=== PATIENT | female | born 1995 | race Caucasian/White ===

== ENCOUNTER 2016-07-11 11:22 | Emergency (ER) | payer OTHER ==
[2016-07-11 12:53] VITALS: BP 123/68
== END 2016-07-11 13:15 | disposition left against medical advice (07) ==
LOC: UCCORT 11:22
DX: R09.89 Other specified symptoms and signs involving the circulatory and respiratory systems (principal); Z53.21 Procedure and treatment not carried out due to patient leaving prior to being seen by health care provider

== ENCOUNTER 2016-07-11 19:04 | Emergency (ER) | payer OTHER ==
[2016-07-11 20:00] VITALS: BP 111/70
--- NOTE | 2016-07-11 21:47 | UC ---
Throat Pain/Nasal [place] HPI - HPI Summary HPI Summary: 21 female presents today complaining of sinus pressure and nasal congestion that started this morning. Patient states she has not tried taking any OTC medication for these symptoms. She had one sinus infection before last year. She denies any sore throat, cough, headache, eye pressure and nausea/vomiting. Patient states sometimes her ears feel full. She also states her neck is sore. Nothing really seems to make it better or worse. Has not been around anybody that is sick. - History of Current Complaint Chief Complaint: UCGeneralIllness Stated Complaint: SINUSES Time Seen by Provider: 07/11/16 21:36 Hx Obtained From: Patient Hx Last Menstrual Period: 06/13/16 ?: No Onset/Duration: Sudden Onset Severity: Mild Pain Intensity: 5 Pain Scale Used: 0-10 Numeric Cough: None Associated Signs & Symptoms: Positive: Sinus Discomfort, Nasal Discharge - Allergies/Home Medications Allergies/Adverse Reactions: Allergies Allergy/AdvReac Type Severity Reaction Status Date / Time Penicillins Allergy Hives Verified 07/11/16 19:59 PMH/Surg Hx/FS Hx/Imm Hx Previously Healthy: Yes - Surgical History Surgical History: None - Family History Known Family History: Positive: None - Social History Alcohol Use: Occasionally Substance Use Type: None Smoking Status (MU): Never Smoked Tobacco - Immunization History Most Recent Influenza Vaccination: 2016 Review of Systems Constitutional: Negative Skin: Negative Eyes: Negative ENT: Nasal Discharge, Other - sinus pressure Respiratory: Negative Cardiovascular: Negative Gastrointestinal: Negative Genitourinary: Negative Motor: Negative Neurovascular: Negative Musculoskeletal: Negative Neurological: Negative Psychological: Negative All Other Systems Reviewed And Are Negative: Yes Physical Exam Triage Information Reviewed: Yes Appearance: No Pain Distress, Well-Nourished, Ill-Appearing - appears congested and tired Vital Signs: Initial Vital Signs Temp 99.1 F 07/11/16 19:53 Pulse 92 07/11/16 19:53 Resp 16 07/11/16 19:53 BP 111/70 07/11/16 19:53 Pulse Ox 100 07/11/16 19:53 Vital Signs Reviewed: Yes Eyes: Positive: Conjunctiva Clear ENT: Positive: Hearing grossly normal, Pharynx normal, Nasal congestion, Nasal drainage, TMs normal, Other: - very mild tenderness upon palpation of maxillary sinuses. Neck: Positive: Supple, No Lymphadenopathy, Tenderness @ - when palpating lateral muscles Respiratory: Positive: Chest non-tender, Lungs clear, Normal breath sounds, No respiratory distress Cardiovascular: Positive: RRR, No Murmur, Pulses Normal Abdominal Exam: Normal Musculoskeletal Exam: Normal Neurological Exam: Normal Psychological Exam: Normal Skin Exam: Normal Throat Pain/Nasal Course/Dx - Course Course Of Treatment: due to patient symptoms beginning this morning, antibiotics were not needed at this time. otc measures were suggested. flonase was prescribed. - Differential Dx/Diagnosis Differential Diagnosis/HQI/PQRI: Influenza, Laryngitis, Otitis Media, Pharyngitis, Sinusitis, URI Provider Diagnoses: rhinosinusitis Discharge - Discharge Plan Condition: Stable Disposition: HOME Prescriptions: Fluticasone NASAL SPRAY 50MCG* [Flonase NASAL SPRAY 50MCG*] 2 spray BOTH NARES DAILY #1 btl Patient Education Materials: Rhinosinusitis (ED) Referrals: Non Staff,Doctor [Primary Care Provider] - Additional Instructions: Use OTC medication such as Sudafed, Nyquil, Mucinex to help with congestion. Use saline rinses or netti pots for the next couple of day multiple times a day. Use prescribed nasal spray to help with inflammation and congestion. hot packs on your cheeks with also help. If symptoms do not improve or worsen within the next 5-7 days please return to or follow up with PCP. Drink plenty of fluids and get a lot of rest. Wash hands frequently.
== END 2016-07-11 22:05 | disposition home or self-care (01) ==
LOC: UCCORT 19:04
DX: J32.9 Chronic sinusitis, unspecified (principal); Z88.0 Allergy status to penicillin
CPT/HCPCS: 99212; G0463

== ENCOUNTER 2018-07-19 10:35 | Emergency (ER) | payer OTHER ==
[2018-07-19 12:45] VITALS: BP 132/81
--- NOTE | 2018-07-19 13:15 | UC ---
Ear Complaint HPI - HPI Summary HPI Summary: Pt c/o sudden onset of left ear pain. Pt had c/o uri like symptoms nasal congestion and bilateral ear fullness pt states that he coughed and had sudden onset left ear pain. - History of Current Complaint Chief Complaint: UCEar Stated Complaint: LT EAR PAIN Time Seen by Provider: 07/19/18 12:40 Hx Obtained From: Patient Hx Last Menstrual Period: 07/02/18 ?: No Onset/Duration: Sudden Onset Severity Initially: Mild Severity Currently: Mild Pain Intensity: 5 Pain Scale Used: 0-10 Numeric Associated Signs/Symptoms: Positive: URI Symptoms - Allergies/Home Medications Allergies/Adverse Reactions: Allergies Allergy/AdvReac Type Severity Reaction Status Date / Time Penicillins Allergy Hives Verified 07/19/18 12:41 Home Medications: Home Medications Norgestimate-Eth Estradiol(NF) [Ortho Tri-Cyclen (NF)] 1 tab QPM 07/19/18 [ History Confirmed 07/19/18] Pantoprazole TAB * [Protonix TAB*] 1 tab QAM 07/19/18 [History Confirmed ] PMH/Surg Hx/FS Hx/Imm Hx Previously Healthy: Yes - Surgical History Surgical History: Yes Surgery Procedure, Year, and Place: UPPER ENDOSCOPY - Family History Known Family History: Positive: Cardiac Disease - Social History Occupation: Student Lives: With Family Alcohol Use: Occasionally Substance Use Type: None Smoking Status (MU): Never Smoked Tobacco Have You Smoked in the Last Year: No - Immunization History Most Recent Influenza Vaccination: 2016 Review of Systems All Other Systems Reviewed And Are Negative: Yes Constitutional: Positive: Negative Skin: Positive: Negative Eyes: Positive: Negative ENT: Positive: Ear Ache Respiratory: Positive: Negative Cardiovascular: Positive: Negative Gastrointestinal: Positive: Negative Genitourinary: Positive: Negative Motor: Positive: Negative Neurovascular: Positive: Negative Musculoskeletal: Positive: Negative Neurological: Positive: Negative Psychological: Positive: Negative Is Patient Immunocompromised?: No Physical Exam Triage Information Reviewed: Yes Appearance: Well-Appearing Vital Signs: Initial Vital Signs Temp 98.2 F 07/19/18 12:42 Pulse 89 07/19/18 12:42 Resp 14 07/19/18 12:42 BP 132/81 07/19/18 12:42 Pulse Ox 99 07/19/18 12:42 Vital Signs Reviewed: Yes Eye Exam: Normal ENT: Positive: TM bulging - upper TM from 12-3 o'clock, TM red - left Dental Exam: Normal Neck exam: Normal Respiratory Exam: Normal Cardiovascular Exam: Normal Musculoskeletal Exam: Normal Neurological Exam: Normal Psychological Exam: Normal Skin Exam: Normal Ear Complaint Course/Dx - Differential Dx/Diagnosis Differential Diagnosis/HQI/PQRI: Otitis Media, URI Provider Diagnosis: Ear barotrauma Discharge - Sign-Out/Discharge Documenting (check all that apply): Patient Departure All imaging exams completed and their final reports reviewed: No Studies - Discharge Plan Condition: Stable Disposition: HOME Patient Education Materials: Barotrauma (ED), Earache (ED) Referrals: [facility] [Outside] - If Needed No Primary Care Phys,NOPCP [Primary Care Provider] - - Billing Disposition and Condition Condition: STABLE Disposition: Home - Attestation Statements Provider Attestation: I was available for consult. This patient was seen by the LUZMA. The patient was not presented to, seen by, or examined by me. EK
== END 2018-07-19 13:04 | disposition home or self-care (01) ==
LOC: UCCORT 10:35
DX: T70.29XA Other effects of high altitude, initial encounter (principal); R09.81 Nasal congestion; Z88.0 Allergy status to penicillin; X58.XXXA Exposure to other specified factors, initial encounter; Y92.9 Unspecified place or not applicable
CPT/HCPCS: 99211; G0463